=== PATIENT | female | born 1950 | race African-American/Black ===

== ENCOUNTER 2021-05-02 14:29 | Inpatient (IN) | payer OTHER ==
[~2021-05-02] VITALS: Ht 170.2 cm; Wt 75.3 kg
[~2021-05-02 14:29] MED LIST: CLON0.1T MT; HYDR-4135 PO; METO100T16 PO
[2021-05-02] MEDS ORDERED: MORPHINE SULFATE 4 MG/ML CPJ (NOT FOR IM USE) IV ONE ×2 (16:00→21:15)
[2021-05-02] MEDS ORDERED: ASPIRIN 81MG TABLET PO ONE (16:00)
[2021-05-02 16:20] LABS: BASOPHILS % 0.7 % (0.0-2.0); EOSINOPHILS % 2.2 % (0.0-5.0); HEMATOCRIT. 27.1 % (36.0-48.0); HEMOGLOBIN. 8.7 g/dL (12.0-16.0); MEAN CORPUSCULAR HEMOGLOBIN 25.7 pg (28.0-32.0); MEAN CORPUSCULAR VOLUME 79.9 fL (81.0-99.0); MEAN PLATELET VOLUME 7.2 fl (7.4-10.4); MONOCYTES % 9.4 % (2.0-8.0); NEUTROPHILS % 68.7 % (40.0-76.0); PLATELET 595 x1000/uL (130-400); RED BLOOD CELL COUNT 3.39 mill/uL (4.2-5.4); RED CELL DISTRIBUTION WIDTH 22.1 % (11.6-14.6)
[2021-05-02 16:25] LABS: CHLORIDE 108 mEq/L (98-107)
[2021-05-02 16:40] LABS: PLATELET ESTIMATE INCREASED
[2021-05-02 18:33] LABS: COLOR URINE DARK YELLOW (YELLOW)
[2021-05-02 18:34] LABS: CLARITY URINE CLOUDY (CLEAR); PH URINE 6.5 (4.5-8.0); PROTEIN URINE 2+ (NEGATIVE); SPECIFIC GRAVITY URINE 1.034 (1.005-1.030)
[2021-05-02 18:35] LABS: KETONES URINE TRACE (NEGATIVE); NITRITE URINE POSITIVE (NEGATIVE); OCCULT BLOOD URINE 3+ (NEGATIVE)
[2021-05-02 18:36] LABS: LEUKOCYTE ESTERASE URINE 3+ (NEGATIVE)
[2021-05-02 18:38] LABS: *AMPHETAMINES SCREEN URINE NEGATIVE (NEGATIVE); *BARBITURATES SCREEN URINE NEGATIVE (NEGATIVE); *BENZODIAZEPINES SCREEN URINE NEGATIVE (NEGATIVE); *COCAINE SCREEN URINE NEGATIVE (NEGATIVE); METHADONE URINE SCREEN NEGATIVE (NEGATIVE); OPIATES URINE SCREEN PRESUMTIVE POSITIVE (NEGATIVE)
[2021-05-02 18:39] LABS: CANNABINOID URINE SCREEN NEGATIVE (NEGATIVE); PHENCYCLIDINE URINE SCREEN NEGATIVE (NEGATIVE)
[2021-05-02] MEDS ORDERED: CEFTRIAXONE 1 G PREMIX 50 ML IV ONE (21:30)
[2021-05-02] MEDS ORDERED: IOHEXOL-350 100 ML BOTTLE ONE (23:12)
[2021-05-03] VITALS: BP_SYST 120; BP_SYST 126; BP_DIAS 71
[2021-05-03] MEDS ORDERED: CEFTRIAXONE 1 G PREMIX 50 ML IV SCH (01:45)
[2021-05-03] MEDS ORDERED: ONDANSETRON HCL 4MG/2ML INJ IV PRN (01:45)
[2021-05-03] MEDS ORDERED: ACETAMINOPHEN 325MG TABLET PO PRN (01:45)
[2021-05-03] MEDS ORDERED: MAGNESIUM/ALUMINUM HYDROXIDE/SIMETHICONE 30ML UDC PO PRN (01:45)
[2021-05-03] MEDS ORDERED: CLONIDINE 0.1MG TABLET PO PRN (01:45)
[2021-05-03] MEDS: HYDROMORPHONE HCL/PF 2MG/ML CPJ IV PRN ×6 (02:08→20:46)
[2021-05-03] MEDS ORDERED: ENOXAPARIN 40MG/0.4ML SYR SUBCUT SCH (02:30)
[2021-05-03] MEDS ORDERED: CARV3.1242 PO (02:46)
[2021-05-03] MEDS ORDERED: HYDR-4346 PO (02:46)
[2021-05-03] MEDS ORDERED: DOCU250C14 MT (02:46)
[2021-05-03] MEDS ORDERED: LOSA25TA26 MT (02:46)
[2021-05-03 04:00] VITALS: BP 123/67
[2021-05-03 06:51] LABS: CREATINE KINASE 27 IU/L (26-192)
[2021-05-03 08:00] VITALS: BP 143/73
[2021-05-03] MEDS: METOPROLOL TARTRATE 25MG TABLET PO SCH ×2 (08:49→21:23)
[2021-05-03] MEDS: HYDRALAZINE HCL 50MG TABLET PO SCH (11:25)
[2021-05-03] MEDS: APIXABAN 5 MG TABLET PO SCH ×2 (11:25→21:23)
[2021-05-03] MEDS: HYDROCODONE/ACETAMINOPHEN 5/325MG TABLET PO PRN (11:26)
[2021-05-03 12:00] VITALS: BP 108/63
[2021-05-03 16:00] VITALS: BP 134/52
[2021-05-03 17:30] LABS: CREATINE KINASE 22 IU/L (26-192)
[2021-05-03 20:00] VITALS: BP 108/69
[2021-05-03] MEDS: CEFTRIAXONE 1,000 MG in DEXTROSE 5% WATER 50 ML IV SCH (21:23)
[2021-05-04] VITALS: BP 179/86
[2021-05-04] MEDS: HYDROMORPHONE HCL/PF 2MG/ML CPJ IV PRN ×6 (01:03→21:46)
[2021-05-04 04:00] VITALS: BP 155/95
[2021-05-04 07:11] LABS: BASOPHILS % 0.6 % (0.0-2.0); EOSINOPHILS % 5.4 % (0.0-5.0); HEMATOCRIT. 29.3 % (36.0-48.0); HEMOGLOBIN. 9.4 g/dL (12.0-16.0); LYMPHOCYTES % 31.5 % (20.0-50.0); MEAN CORPUSCULAR HEMOGLOBIN 25.9 pg (28.0-32.0); MEAN CORPUSCULAR VOLUME 80.9 fL (81.0-99.0); MEAN PLATELET VOLUME 7.2 fl (7.4-10.4); MONOCYTES % 8.9 % (2.0-8.0); NEUTROPHILS % 53.6 % (40.0-76.0); PLATELET 521 x1000/uL (130-400); RED BLOOD CELL COUNT 3.63 mill/uL (4.2-5.4); RED CELL DISTRIBUTION WIDTH 21.8 % (11.6-14.6)
[2021-05-04 07:21] LABS: CHLORIDE 105 mEq/L (98-107)
[2021-05-04 07:29] LABS: HDL CHOLESTEROL 32 mg/dL (40-59); LDL CHOLESTEROL 155 mg/dL (5-100)
[2021-05-04 08:00] VITALS: BP 155/78
[2021-05-04] MEDS ORDERED: LOSARTAN POTASSIUM 25 MG TABLET PO SCH (09:00)
[2021-05-04] MEDS: APIXABAN 5 MG TABLET PO SCH ×2 (10:24→17:10)
[2021-05-04] MEDS: METOPROLOL TARTRATE 25MG TABLET PO SCH ×2 (10:25→21:47)
[2021-05-04] MEDS: HYDRALAZINE HCL 50MG TABLET PO SCH (10:25)
[2021-05-04 12:00] VITALS: BP 135/69
[2021-05-04 16:00] VITALS: BP 138/57
[2021-05-04 20:00] VITALS: BP 137/76
[2021-05-04] MEDS ORDERED: ATORVASTATIN CALCIUM 20MG TABLET PO SCH (21:00)
[2021-05-04] MEDS: ATORVASTATIN CALCIUM 40MG TABLET PO SCH (21:47)
[2021-05-04] MEDS: CEFTRIAXONE 1,000 MG in DEXTROSE 5% WATER 50 ML IV SCH (21:48)
[2021-05-05] VITALS: BP 147/81
[2021-05-05 04:00] VITALS: BP 137/88
[2021-05-05] MEDS: HYDROMORPHONE HCL/PF 2MG/ML CPJ IV PRN ×5 (05:14→22:11)
[2021-05-05 09:00] VITALS: BP 155/91
[2021-05-05] MEDS: APIXABAN 5 MG TABLET PO SCH ×2 (09:30→17:03)
[2021-05-05] MEDS: HYDRALAZINE HCL 50MG TABLET PO SCH (09:31)
[2021-05-05] MEDS: METOPROLOL TARTRATE 25MG TABLET PO SCH ×2 (09:31→21:35)
[2021-05-05] MEDS: LOSARTAN POTASSIUM 50 MG TABLET PO SCH (09:31)
[2021-05-05 12:00] VITALS: BP 121/79
[2021-05-05 16:00] VITALS: BP 143/72
[2021-05-05 20:00] VITALS: BP 138/75
[2021-05-05] MEDS: NITROFURANTOIN 100MG M/M CAPSULE PO SCH (21:35)
[2021-05-05] MEDS: ATORVASTATIN CALCIUM 40MG TABLET PO SCH (21:36)
[2021-05-06] VITALS: BP 137/75
[2021-05-06] MEDS: HYDROMORPHONE HCL/PF 2MG/ML CPJ IV PRN ×6 (02:19→21:57)
[2021-05-06 04:00] VITALS: BP 166/93
[2021-05-06 08:00] VITALS: BP 124/71
[2021-05-06] MEDS: HYDRALAZINE HCL 50MG TABLET PO SCH (09:06)
[2021-05-06] MEDS: APIXABAN 5 MG TABLET PO SCH ×2 (09:06→17:58)
[2021-05-06] MEDS: METOPROLOL TARTRATE 25MG TABLET PO SCH ×2 (09:06→21:56)
[2021-05-06] MEDS: LOSARTAN POTASSIUM 50 MG TABLET PO SCH (09:10)
[2021-05-06] MEDS: NITROFURANTOIN 100MG M/M CAPSULE PO SCH ×2 (09:16→21:56)
[2021-05-06 12:00] VITALS: BP 120/49
[2021-05-06 16:00] VITALS: BP 126/75
[2021-05-06 20:00] VITALS: BP 139/73
[2021-05-06] MEDS: ATORVASTATIN CALCIUM 40MG TABLET PO SCH (21:55)
[2021-05-07] VITALS: BP 136/72
[2021-05-07] MEDS: HYDROMORPHONE HCL/PF 2MG/ML CPJ IV PRN ×7 (01:12→22:57)
[2021-05-07 04:00] VITALS: BP 105/84
[2021-05-07 08:00] VITALS: BP 129/64
[2021-05-07] MEDS: APIXABAN 5 MG TABLET PO SCH ×2 (09:11→17:32)
[2021-05-07] MEDS: LOSARTAN POTASSIUM 50 MG TABLET PO SCH (09:12)
[2021-05-07] MEDS: METOPROLOL TARTRATE 25MG TABLET PO SCH ×2 (09:12→21:00)
[2021-05-07] MEDS: HYDRALAZINE HCL 50MG TABLET PO SCH (09:12)
[2021-05-07] MEDS: NITROFURANTOIN 100MG M/M CAPSULE PO SCH ×2 (09:13→22:00)
[2021-05-07 12:00] VITALS: BP 146/65
[2021-05-07 16:00] VITALS: BP 140/72
[2021-05-07 20:00] VITALS: BP 128/71
[2021-05-07] MEDS: ATORVASTATIN CALCIUM 40MG TABLET PO SCH (22:00)
[2021-05-07] MEDS: HYDROCODONE/ACETAMINOPHEN 5/325MG TABLET PO PRN (22:14)
[2021-05-08] VITALS: BP 143/86
[2021-05-08 04:00] VITALS: BP 163/91
[2021-05-08] MEDS: HYDROMORPHONE HCL/PF 2MG/ML CPJ IV PRN ×6 (04:50→22:49)
[2021-05-08 08:00] VITALS: BP 151/82
[2021-05-08] MEDS: LOSARTAN POTASSIUM 50 MG TABLET PO SCH (08:55)
[2021-05-08] MEDS: METOPROLOL TARTRATE 25MG TABLET PO SCH ×2 (08:55→21:29)
[2021-05-08] MEDS: HYDRALAZINE HCL 50MG TABLET PO SCH ×2 (08:55→17:18)
[2021-05-08] MEDS: NITROFURANTOIN 100MG M/M CAPSULE PO SCH ×2 (08:55→21:25)
[2021-05-08] MEDS: APIXABAN 5 MG TABLET PO SCH ×2 (09:02→17:17)
[2021-05-08 12:00] VITALS: BP 135/59
[2021-05-08 16:00] VITALS: BP 139/83
[2021-05-08 20:00] VITALS: BP 119/71
[2021-05-08] MEDS: ATORVASTATIN CALCIUM 40MG TABLET PO SCH (21:26)
[2021-05-09] VITALS (8 sets, daily range): BP systolic 127–154; BP diastolic 64–82
[2021-05-09] MEDS: HYDROMORPHONE HCL/PF 2MG/ML CPJ IV PRN ×5 (05:21→19:12)
[2021-05-09] MEDS: APIXABAN 5 MG TABLET PO SCH ×2 (08:42→16:00)
[2021-05-09] MEDS: METOPROLOL TARTRATE 25MG TABLET PO SCH ×2 (08:42→22:10)
[2021-05-09] MEDS: HYDRALAZINE HCL 50MG TABLET PO SCH ×2 (08:42→16:00)
[2021-05-09] MEDS: NITROFURANTOIN 100MG M/M CAPSULE PO SCH ×2 (08:42→22:10)
[2021-05-09] MEDS: LOSARTAN POTASSIUM 50 MG TABLET PO SCH (08:46)
[2021-05-09] MEDS: ATORVASTATIN CALCIUM 40MG TABLET PO SCH (22:10)
== END 2021-05-09 23:45 | disposition home health service (06) | DRG 205 ==
LOC: ER 14:29 → 5WST 21:41 → ENRESERV 22:16
PROVIDERS: ADMIT Hospitalist; ATTEND Hospitalist
DX: M94.0 Chondrocostal junction syndrome [Tietze] (principal); L89.154 Pressure ulcer of sacral region, stage 4; E43 Unspecified severe protein-calorie malnutrition; D68.59 Other primary thrombophilia; I48.19 Other persistent atrial fibrillation; N39.0 Urinary tract infection, site not specified; G35 Multiple sclerosis; R79.89 Other specified abnormal findings of blood chemistry; D64.9 Anemia, unspecified; L29.9 Pruritus, unspecified; G89.29 Other chronic pain; I10 Essential (primary) hypertension; B96.20 Unspecified Escherichia coli [E. coli] as the cause of diseases classified elsewhere; Z79.01 Long term (current) use of anticoagulants; Z86.718 Personal history of other venous thrombosis and embolism; Z86.79 Personal history of other diseases of the circulatory system; Z99.3 Dependence on wheelchair; Z79.899 Other long term (current) drug therapy; Z68.26 Body mass index [BMI] 26.0-26.9, adult
CPT/HCPCS: 36415; 71045; 71275; 80053; 80061; 80305; 81003; 82550; 83880; 84134; 84484; 85025; 87077; 87186; 93005; 93306; 93970; 99285; C1893; J0696; J1170; J1650; J2270; J7040; J7060; Q9967

== ENCOUNTER 2021-07-24 13:07 | Inpatient (IN) | payer OTHER, MEDICAID ==
[~2021-07-24] VITALS: Ht 157.5 cm; Wt 46.0 kg
[~2021-07-24 13:07] MED LIST changes: +CARV3.1242 PO; +DOCU250C14 MT; +ETOMIDATE 2MG/ML 10ML VIAL IV ONE; +HYDR-4346 PO; +LOSA25TA26 MT; +SODIUM CHLORIDE 0.9% 10ML VIAL ONE; +VECURONIUM BROMIDE 10 MG/VIAL IV ONE
[2021-07-24] MEDS ORDERED: VANCOMYCIN 1 G PREMIX 200 ML IV ONE (13:30)
[2021-07-24] MEDS ORDERED: PIPERACILLIN/TAZ 3.375G PREMIX 50 ML IV ONE (13:30)
[2021-07-24] MEDS ORDERED: NOREPINEPHRINE 8MG/250ML PMX 250 ML IV STA ×2 (13:39→17:25)
[2021-07-24] MEDS ORDERED: SODIUM CHLORIDE 0.9% 1,000 ML IV ONE ×2 (13:45→15:30)
[2021-07-24] MEDS ORDERED: VANCOMYCIN 750 MG PREMIX 150 ML IV SCH (14:00)
[2021-07-24 14:11] LABS: HEMATOCRIT. 27.8 % (36.0-48.0); HEMOGLOBIN. 8.2 g/dL (12.0-16.0); MEAN CORPUSCULAR HEMOGLOBIN 24.7 pg (28.0-32.0); MEAN PLATELET VOLUME 8.5 fl (7.4-10.4); PLATELET 248 x1000/uL (130-400); RED BLOOD CELL COUNT 3.31 mill/uL (4.2-5.4)
[2021-07-24 14:23] LABS: INR 1.8; PROTHROMBIN TIME 18.1 sec (9.6-11.0)
[2021-07-24 14:24] LABS: CHLORIDE 104 mEq/L (98-107)
[2021-07-24 14:27] LABS: ETHANOL BLOOD < 10 mg/dL
[2021-07-24 14:30] LABS: PLATELET ESTIMATE NORMAL
[2021-07-24] MEDS ORDERED: LEVOFLOXACIN 750MG PREMIX 150 ML IV ONE (14:30)
[2021-07-24] MEDS ORDERED: DEXT 5% WATER 500 ML IV ONE (14:45)
[2021-07-24 15:15] VITALS: BP 84/50
[2021-07-24] MEDS ORDERED: HYDROCORTISONE SOD SUCCINATE 100 MG/2 ML VIAL IV ONE (16:00)
[2021-07-24] MEDS ORDERED: METOPROLOL TARTRATE 5MG/5ML VIAL IV ONE (16:00)
[2021-07-24] MEDS ORDERED: ACETAMINOPHEN 325MG TABLET PO PRN ×2 (16:15)
[2021-07-24] MEDS ORDERED: ONDANSETRON HCL 4MG/2ML INJ IV PRN (16:15)
[2021-07-24] MEDS ORDERED: AMLO10TA80 PO (16:48)
[2021-07-24] MEDS ORDERED: APIX5TAB PO (16:48)
[2021-07-24] MEDS ORDERED: CEFEPIME 1,000 MG in DEXTROSE 5% WATER 50 ML IV SCH (17:00)
[2021-07-24] MEDS ORDERED: VASOPRESSIN 20 UNIT in SODIUM CHLORIDE 0.9% 99 ML IV NR (17:30)
[2021-07-24] MEDS ORDERED: EPINEPHRINE 0.1MG/ML (1:10,000) 10ML SYR ONE (17:44)
[2021-07-25] MEDS ORDERED: APIXABAN 5 MG TABLET PO SCH (09:00)
[2021-07-25] MEDS ORDERED: VANCOMYCIN 750 MG PREMIX 150 ML IV SCH (16:00)
== END 2021-07-24 18:03 | DRG 871 ==
LOC: ER 13:07 → EDBEDREQ 13:35 → EDBEDREQTM 13:43 → EDBEDREQSVC 13:43 → SUPCPDRO 15:38 → MICUSO 17:37
PROVIDERS: ADMIT Internal Medicine; ATTEND Internal Medicine
PROC: 5A12012 Performance of Cardiac Output, Single, Manual (ICD-10-PCS; principal; 2021-07-24)
PROC: 5A1935Z Respiratory Ventilation, Less than 24 Consecutive Hours (ICD-10-PCS; 2021-07-24)
PROC: 0BH17EZ Insertion of Endotracheal Airway into Trachea, Via Natural or Artificial Opening (ICD-10-PCS; 2021-07-24)
PROC: 05HY33Z Insertion of Infusion Device into Upper Vein, Percutaneous Approach (ICD-10-PCS; 2021-07-24)
PROC: B54BZZA Ultrasonography of Right Lower Extremity Veins, Guidance (ICD-10-PCS; 2021-07-24)
DX: A41.9 Sepsis, unspecified organism (principal); R65.21 Severe sepsis with septic shock; E87.2 Acidosis; G93.40 Encephalopathy, unspecified; N17.9 Acute kidney failure, unspecified; N39.0 Urinary tract infection, site not specified; E16.2 Hypoglycemia, unspecified; G35 Multiple sclerosis; I10 Essential (primary) hypertension; I48.91 Unspecified atrial fibrillation; I46.9 Cardiac arrest, cause unspecified; N32.89 Other specified disorders of bladder; N21.0 Calculus in bladder; R77.8 Other specified abnormalities of plasma proteins; E87.5 Hyperkalemia; D64.9 Anemia, unspecified; L89.159 Pressure ulcer of sacral region, unspecified stage; Z86.718 Personal history of other venous thrombosis and embolism
CPT/HCPCS: 36415; 71045; 74176; 80053; 80320; 82962; 83605; 84145; 84484; 85025; 87077; 87186; 93005; 94002; 99291; J0692; J1720; J2543; J3370; J3490; J7030; J7050; J7060; A4315; G0480